=== PATIENT | female | born 1980 | race Caucasian/White ===

== ENCOUNTER 2017-07-28 15:29 | Emergency (ER) | payer MEDICAID ==
[~2017-07-28] VITALS: Ht 175.3 cm; Wt 52.2 kg
[~2017-07-28 15:29] MED LIST: CEFD300C37 PO; CEFU500T50 PO; MULT-500 PO
[2017-07-28] MEDS ORDERED: SODIUM CHLORIDE 0.9% 1,000 ML IV ONE (15:57)
[2017-07-28] MEDS ORDERED: SODIUM CHLORIDE 0.9% 1,000ML IVBOLUS ONE (16:00)
[2017-07-28] MEDS ORDERED: LORazepam 2 MG/ML, 1ML IVPush PRN (16:00)
[2017-07-28] MEDS ORDERED: ONDANSETRON 2MG/ML, 2ML IVPush ONE (16:00)
[2017-07-28] MEDS ORDERED: ONDANSETRON 2MG/ML, 2ML ONE (16:04)
[2017-07-28] MEDS ORDERED: LORazepam 2 MG/ML, 1ML ONE (16:04)
[2017-07-28 16:17] LABS: HEMOGLOBIN 15.4 g/dL (11.7-16.4); WHITE BLOOD COUNT 4.6 x10^3/uL (3.4-10)
[2017-07-28 16:30] LABS: ASPARTATE AMINO TRANSFERASE 326 U/L (15-37); BLOOD UREA NITROGEN 8 mg/dL (7-18)
[2017-07-28] MEDS ORDERED: THIAMINE 100 MG in SODIUM CHLORIDE 0.9% 50 ML IVPB ONE (16:30)
[2017-07-28] MEDS ORDERED: ESCI20TA10 PO (16:52)
[2017-07-28] MEDS ORDERED: NALT50TA PO (16:52)
[2017-07-28 17:47] VITALS: BP 133/97
== END 2017-07-28 17:49 | disposition home or self-care (01) ==
LOC: ED 17:20
DX: K85.20 Alcohol induced acute pancreatitis without necrosis or infection (principal); F10.239 Alcohol dependence with withdrawal, unspecified
CPT/HCPCS: 36415; 80053; 80307; 83690; 84703; 85025; 96361; 96365; 96375; 99284; J2060; J2405; J3411; J7030; G0479

== ENCOUNTER 2017-08-11 08:10 | Inpatient (IN) | payer MEDICAID ==
[~2017-08-11] VITALS: Ht 177.8 cm; Wt 54.3 kg
[~2017-08-11 08:10] MED LIST changes: +ESCI20TA10 PO; +NALT50TA PO
[2017-08-11] MEDS ORDERED: SODIUM CHLORIDE 0.9% 1,000 ML IV ONE (08:29)
[2017-08-11] MEDS ORDERED: SODIUM CHLORIDE 0.9% 1,000ML IVBOLUS ONE (08:30)
[2017-08-11] MEDS ORDERED: THIAMINE 100 MG in SODIUM CHLORIDE 0.9% 50 ML IVPB ONE (08:30)
[2017-08-11] MEDS ORDERED: ONDANSETRON 2MG/ML, 2ML IVPush ONE (08:30)
[2017-08-11] MEDS ORDERED: ONDANSETRON 2MG/ML, 2ML ONE (08:40)
[2017-08-11] MEDS ORDERED: LORazepam 2 MG/ML, 1ML ONE ×2 (08:41→09:22)
[2017-08-11] MEDS: LORazepam 2 MG/ML, 1ML IVPush PRN ×4 (09:01→20:36)
[2017-08-11 09:03] LABS: ASPARTATE AMINO TRANSFERASE 318 U/L (15-37); BLOOD UREA NITROGEN 6 mg/dL (7-18)
[2017-08-11 09:13] LABS: HEMATOCRIT 44.4 % (34.6-47.8); HEMOGLOBIN 15.6 g/dL (11.7-16.4); WHITE BLOOD COUNT 4.5 x10^3/uL (3.4-10)
[2017-08-11 10:35] VITALS: BP 114/82
[2017-08-11] MEDS ORDERED: POTASSIUM CHLORIDE 20 MEQ in LACTATED RINGERS 1,000 ML IV SCH (10:38)
[2017-08-11] MEDS ORDERED: BISACODYL 10 MG SUPP PR PRN (11:00)
[2017-08-11] MEDS ORDERED: POLYETHYLENE GLYCOL 17 GM PACKET PO PRN (11:00)
[2017-08-11] MEDS ORDERED: morphine SULFATE 10 MG/ML, 1ML IVPush PRN (11:00)
[2017-08-11] MEDS ORDERED: LABETALOL 5MG/ML, 20ML IVPush PRN (11:00)
[2017-08-11] MEDS ORDERED: DOCUSATE 100 MG CAPSULE PO PRN (11:00)
[2017-08-11] MEDS ORDERED: OMNIPAQUE 350 MG/ML, 100ML BOTTLE ONE (12:39)
[2017-08-11 13:24] VITALS: BP 119/87
[2017-08-11] MEDS: ENOXAPARIN 40 MG/0.4 ML SQ SCH (13:42)
[2017-08-11] MEDS: POTASSIUM CHLORIDE 20 MEQ, MAGNESIUM SULFATE 2 GM, THIAMINE 100 MG, MVI ADULT 10 ML in ... IV SCH ×2 (14:25→16:05)
[2017-08-11 15:24] VITALS: BP 119/84
[2017-08-11] MEDS: METRONIDAZOLE PMX 500MG/100ML 100 ML IV SCH (18:26)
[2017-08-11 20:19] VITALS: BP 115/80
[2017-08-11] MEDS: ONDANSETRON 2MG/ML, 2ML IVPush PRN (23:34)
[2017-08-12] MEDS: LORazepam 2 MG/ML, 1ML IVPush PRN ×6 (00:22→22:36)
[2017-08-12] MEDS: POTASSIUM CHLORIDE 20 MEQ in LACTATED RINGERS 1,000 ML IV SCH ×3 (00:33→06:40)
[2017-08-12 01:58] VITALS: BP 119/85
[2017-08-12] MEDS: METRONIDAZOLE PMX 500MG/100ML 100 ML IV SCH ×3 (02:08→18:40)
[2017-08-12 05:31] LABS: HEMATOCRIT 35.4 % (34.6-47.8); HEMOGLOBIN 12.1 g/dL (11.7-16.4)
[2017-08-12 05:45] LABS: ASPARTATE AMINO TRANSFERASE 179 U/L (15-37); BLOOD UREA NITROGEN 5 mg/dL (7-18)
[2017-08-12 08:33] VITALS: BP 130/93
[2017-08-12] MEDS: ENOXAPARIN 40 MG/0.4 ML SQ SCH (12:23)
[2017-08-12] MEDS: POTASSIUM CHLORIDE 20 MEQ, MAGNESIUM SULFATE 2 GM, THIAMINE 100 MG, MVI ADULT 10 ML in ... IV SCH (12:23)
[2017-08-12] MEDS: CEFTRIAXONE PMX 1GM/50ML 50 ML IV SCH (13:40)
[2017-08-12 16:27] VITALS: BP 128/91
[2017-08-12] MEDS ORDERED: MAGNESIUM SULFATE PMX 2GM/50ML 50 ML IV ONE (18:00)
[2017-08-12 18:45] VITALS: BP 108/73
[2017-08-12] MEDS: ONDANSETRON 2MG/ML, 2ML IVPush PRN (21:32)
[2017-08-13] MEDS: POTASSIUM CHLORIDE 20 MEQ in LACTATED RINGERS 1,000 ML IV SCH ×3 (00:03→05:06)
[2017-08-13 01:59] VITALS: BP 112/77
[2017-08-13] MEDS: METRONIDAZOLE PMX 500MG/100ML 100 ML IV SCH ×3 (02:43→19:46)
[2017-08-13] MEDS: LORazepam 2 MG/ML, 1ML IVPush PRN (03:04)
[2017-08-13 04:50] LABS: HEMATOCRIT 35.3 % (34.6-47.8); HEMOGLOBIN 12.1 g/dL (11.7-16.4); WHITE BLOOD COUNT 3.9 x10^3/uL (3.4-10)
[2017-08-13 05:00] LABS: ASPARTATE AMINO TRANSFERASE 158 U/L (15-37); BLOOD UREA NITROGEN 2 mg/dL (7-18)
[2017-08-13 07:59] VITALS: BP 113/79
[2017-08-13] MEDS ORDERED: POTASSIUM CHLORIDE 20 MEQ TAB.ER.PRT PO ONE (09:00)
[2017-08-13] MEDS ORDERED: ONDANSETRON ODT 4 MG PO PRN (09:00)
[2017-08-13] MEDS: LORazepam INTENSOL 2 MG/ML BC PRN ×4 (09:53→23:12)
[2017-08-13 12:30] VITALS: BP 120/81
[2017-08-13] MEDS: ENOXAPARIN 40 MG/0.4 ML SQ SCH (12:49)
[2017-08-13] MEDS: POTASSIUM CHLORIDE 20 MEQ, MAGNESIUM SULFATE 2 GM, THIAMINE 100 MG, MVI ADULT 10 ML in ... IV SCH (14:24)
[2017-08-13] MEDS: CEFTRIAXONE PMX 1GM/50ML 50 ML IV SCH (14:24)
[2017-08-13] MEDS: MEROPENEM 1 GM in SODIUM CHLORIDE 0.9% 100 ML IV SCH (17:15)
[2017-08-13 18:48] VITALS: BP 127/87
[2017-08-14] MEDS: MEROPENEM 1 GM in SODIUM CHLORIDE 0.9% 100 ML IV SCH ×2 (00:22→08:35)
[2017-08-14 02:11] VITALS: BP 115/78
[2017-08-14] MEDS: METRONIDAZOLE PMX 500MG/100ML 100 ML IV SCH (03:24)
[2017-08-14] MEDS: LORazepam INTENSOL 2 MG/ML BC PRN (03:54)
[2017-08-14 05:18] LABS: HEMATOCRIT 35.7 % (34.6-47.8); HEMOGLOBIN 12.1 g/dL (11.7-16.4); WHITE BLOOD COUNT 4.7 x10^3/uL (3.4-10)
[2017-08-14 05:34] LABS: ASPARTATE AMINO TRANSFERASE 108 U/L (15-37); BLOOD UREA NITROGEN 1 mg/dL (7-18)
[2017-08-14] MEDS ORDERED: ONDA4TAB13 PO (08:24)
[2017-08-14] MEDS ORDERED: LORA-445 PO (08:24)
[2017-08-14] MEDS ORDERED: NITR100C56 PO (08:24)
[2017-08-14] MEDS ORDERED: METR500T PO (08:24)
[2017-08-14 08:43] VITALS: BP 127/83
[2017-08-14 13:01] VITALS: BP 112/77
== END 2017-08-14 13:55 | disposition home or self-care (01) | DRG 371 ==
LOC: ED 09:20 → EDIP 09:30 → 3NE 10:19
PROVIDERS: ADMIT Hospitalist; ATTEND Hospitalist
DX: A04.72 Enterocolitis due to Clostridium difficile, not specified as recurrent (principal); N17.0 Acute kidney failure with tubular necrosis; K85.20 Alcohol induced acute pancreatitis without necrosis or infection; D69.59 Other secondary thrombocytopenia; E86.0 Dehydration; F10.288 Alcohol dependence with other alcohol-induced disorder; F10.239 Alcohol dependence with withdrawal, unspecified; N39.0 Urinary tract infection, site not specified; E87.6 Hypokalemia; I10 Essential (primary) hypertension; F41.9 Anxiety disorder, unspecified; R73.9 Hyperglycemia, unspecified; F32.9 Major depressive disorder, single episode, unspecified; K70.9 Alcoholic liver disease, unspecified; Z79.899 Other long term (current) drug therapy; Z79.1 Long term (current) use of non-steroidal anti-inflammatories (NSAID)
CPT/HCPCS: 36415; 74177; 80053; 80061; 81001; 83690; 83735; 84100; 84703; 85025; 85610; 87077; 87086; 87186; 87324; 87493; 96361; 96365; 96375; J0696; J1650; J2185; J2405; J3411; J3475; J3480; J7042; Q9967; J2060; J7030; J7120

== ENCOUNTER 2017-10-22 21:37 | Inpatient (IN) | payer MEDICAID ==
[~2017-10-22] VITALS: Ht 177.8 cm; Wt 58.5 kg
[~2017-10-22 21:37] MED LIST changes: +LORA-445 PO; +METR500T PO; +NITR100C56 PO; +ONDA4TAB13 PO
[2017-10-22] MEDS ORDERED: SODIUM CHLORIDE FLUSH 10ML SYR IVF ONE (23:00)
[2017-10-22] MEDS ORDERED: LORazepam 2 MG/ML, 1ML IVPush ONE (23:00)
[2017-10-22] MEDS ORDERED: ONDANSETRON 2MG/ML, 2ML IVPush ONE (23:00)
[2017-10-22] MEDS ORDERED: SODIUM CHLORIDE 0.9% 1,000ML IVBOLUS ONE (23:00)
[2017-10-22] MEDS ORDERED: ONDANSETRON 2MG/ML, 2ML ONE (23:09)
[2017-10-22 23:10] LABS: BASOPHILS # (AUTO) 0.02 x10^3/uL (0-0.1); BASOPHILS % (AUTO) 0 % (0-1); EOSINOPHILS # (AUTO) 0.01 x10^3/uL (0-0.4); EOSINOPHILS % (AUTO) 0 % (1-7); LYMPHOCYTES # (AUTO) 0.96 x10^3/uL (1-3.4); LYMPHOCYTES % (AUTO) 15 % (22-44); MD NO; MEAN CORPUSCULAR HEMOGLOBIN 32.2 pg (27.0-34.8); MEAN CORPUSCULAR HGB CONC 34.1 g/dL (32.4-35.8); MEAN CORPUSCULAR VOLUME 94.3 fL (80-100); MEAN PLATELET VOLUME 6.6 fL (7.4-10.4); MONOCYTES # (AUTO) 0.24 x10^3/uL (0.2-0.8); MONOCYTES % (AUTO) 4 % (2-9); NEUTROPHILS # (AUTO) 5.05 x10^3/uL (1.8-6.8); NEUTROPHILS % (AUTO) 81 % (42-75); PLATELET COUNT 104 x10^3/uL (130-400); RED BLOOD COUNT 4.43 x10^6/uL (3.82-5.3); RED CELL DISTRIBUTION WIDTH 17.5 % (9.6-15.2)
[2017-10-22 23:22] LABS: ALANINE AMINOTRANSFERASE 41 U/L (12-78); ALBUMIN 3.2 g/dL (3.4-5.0); ANION GAP 19 mmol/L (5-15); CALCIUM 8.3 mg/dL (8.5-10.1); CHLORIDE 97 mmol/L (98-107); CREATININE 0.89 mg/dL (0.55-1.02)
[2017-10-22] MEDS ORDERED: LORazepam 2 MG/ML, 1ML ONE ×2 (23:24→23:55)
[2017-10-22 23:26] LABS: ALKALINE PHOSPHATASE 120 U/L (45-117); BILIRUBIN,TOTAL 1.4 mg/dL (0.2-1.0); TOTAL PROTEIN 7.7 g/dL (6.4-8.2)
[2017-10-23] MEDS ORDERED: SODIUM CHLORIDE 0.9% 1,000ML IVBOLUS ONE
[2017-10-23] MEDS ORDERED: LORazepam 2 MG/ML, 1ML IVPush ONE
[2017-10-23] MEDS ORDERED: POTASSIUM CHLORIDE 40 MEQ in SODIUM CHLORIDE 0.9% 500 ML IV ONE
[2017-10-23] MEDS ORDERED: POTASSIUM CHLORIDE 20 MEQ TAB.ER.PRT PO ONE (01:00)
[2017-10-23] MEDS ORDERED: SODIUM CHLORIDE 0.9% 1,000 ML IV ONE (01:24)
[2017-10-23] MEDS ORDERED: ONDANSETRON 2MG/ML, 2ML IVPush PRN (01:30)
[2017-10-23] MEDS ORDERED: POTASSIUM CHLORIDE 20 MEQ TAB.ER.PRT ONE (01:40)
[2017-10-23] MEDS ORDERED: LORazepam 2 MG/ML, 1ML IV PRN ×5 (04:00)
[2017-10-23] MEDS ORDERED: ONDANSETRON 2MG/ML, 2ML IV PRN (04:00)
[2017-10-23] MEDS ORDERED: PROMETHAZINE 12.5 MG SUPP PR PRN (04:00)
[2017-10-23] MEDS ORDERED: LORazepam 1MG TABLET PO PRN ×3 (04:00)
[2017-10-23] MEDS ORDERED: morphine SULFATE 10 MG/ML, 1ML IVPush PRN (04:30)
[2017-10-23] MEDS ORDERED: hydrALAzine 20 MG/ML, 1ML IVPush PRN (04:30)
[2017-10-23] MEDS ORDERED: OXYcodone IR 5MG TABLET PO PRN (04:30)
[2017-10-23] MEDS ORDERED: ENALAPRILAT 1.25 MG/ML, 2ML IVPush PRN (04:30)
[2017-10-23] MEDS ORDERED: POLYETHYLENE GLYCOL 17 GM PACKET PO PRN (04:30)
[2017-10-23] MEDS ORDERED: DOCUSATE 100 MG CAPSULE PO PRN (04:30)
[2017-10-23 04:47] LABS: MEAN CORPUSCULAR HEMOGLOBIN 32.3 pg (27.0-34.8); MEAN CORPUSCULAR HGB CONC 33.7 g/dL (32.4-35.8); MEAN CORPUSCULAR VOLUME 95.8 fL (80-100); RED BLOOD COUNT 3.58 x10^6/uL (3.82-5.3); RED CELL DISTRIBUTION WIDTH 17.5 % (9.6-15.2)
[2017-10-23 05:06] LABS: BASOPHILS # (AUTO) 0.01 x10^3/uL (0-0.1); BASOPHILS % (AUTO) 0 % (0-1); EOSINOPHILS # (AUTO) 0.02 x10^3/uL (0-0.4); EOSINOPHILS % (AUTO) 0 % (1-7); LYMPHOCYTES % (AUTO) 31 % (22-44); MD SCAN; MONOCYTES # (AUTO) 0.15 x10^3/uL (0.2-0.8); MONOCYTES % (AUTO) 4 % (2-9); NEUTROPHILS # (AUTO) 2.51 x10^3/uL (1.8-6.8); NEUTROPHILS % (AUTO) 65 % (42-75); PLATELET COUNT 81 x10^3/uL (130-400)
[2017-10-23] MEDS ORDERED: HEPARIN 5,000 UNITS/ML, 1ML ONE (05:06)
[2017-10-23 05:09] LABS: CALCIUM 6.9 mg/dL (8.5-10.1); CHLORIDE 107 mmol/L (98-107)
[2017-10-23 05:36] LABS: ALANINE AMINOTRANSFERASE 33 U/L (12-78); ALBUMIN 2.5 g/dL (3.4-5.0); ALKALINE PHOSPHATASE 92 U/L (45-117); ANION GAP 10 mmol/L (5-15); BILIRUBIN,TOTAL 1.3 mg/dL (0.2-1.0); CHOL/HDL RATIO 1.9; CHOLESTEROL, TOTAL 104 mg/dL (140-239); CREATININE 0.61 mg/dL (0.55-1.02); FREE T4 (FREE THYROXINE) 0.66 ng/dL (0.76-1.46); HDL CHOL % 53 % (28-40); HDL CHOLESTEROL (DIRECT) 55 mg/dL (40-60); LDL CHOLESTEROL,CALCULATED 35 mg/dL (54-169); LDL/HDL RATIO 0.6 (0.5-3.0); TRIGLYCERIDES 72 mg/dL (50-200); VLDL CHOLESTEROL 14 mg/dL (0-25)
[2017-10-23] MEDS: POTASSIUM CHLORIDE 20 MEQ, MAGNESIUM SULFATE 2 GM, THIAMINE 100 MG, MVI ADULT 10 ML, FO... IV SCH (05:37)
[2017-10-23 05:39] LABS: HEMOGLOBIN A1C 4.1 % (4.2-6.3)
[2017-10-23] MEDS: HEPARIN 5,000 UNITS/ML, 1ML SQ SCH ×3 (05:46→20:00)
[2017-10-23] MEDS ORDERED: BACLOFEN 10 MG TABLET PO SCH (09:00)
[2017-10-23 09:24] VITALS: BP 112/79
[2017-10-23 09:50] LABS: MICROSCOPIC NOT IND
[2017-10-23] MEDS: CITALOPRAM 20 MG TABLET PO SCH (09:53)
[2017-10-23] MEDS: FAMOTIDINE 20 MG/2 ML IVPush SCH ×2 (09:53→21:07)
[2017-10-23] MEDS: GABAPENTIN 100 MG CAPSULE PO SCH ×4 (09:53→20:49)
[2017-10-23 09:54] LABS: CULTURE INDICATED? NO
[2017-10-23] MEDS ORDERED: MAGNESIUM SULFATE PMX 2GM/50ML 50 ML IV ONE (11:00)
[2017-10-23] MEDS ORDERED: LORazepam 1MG TABLET ONE ×2 (11:34→17:29)
[2017-10-23] MEDS: LORazepam 0.5MG TABLET PO PRN ×2 (11:38→17:31)
[2017-10-23] MEDS: LORazepam 1MG TABLET PO PRN ×2 (13:20→20:49)
[2017-10-23 13:56] VITALS: BP 99/68
[2017-10-23 20:04] VITALS: BP 108/74
[2017-10-24 02:27] VITALS: BP 102/70
[2017-10-24] MEDS: HEPARIN 5,000 UNITS/ML, 1ML SQ SCH ×3 (02:44→20:14)
[2017-10-24] MEDS ORDERED: LORazepam 1MG TABLET ONE (02:46)
[2017-10-24] MEDS: LORazepam 1MG TABLET PO PRN ×4 (02:50→21:22)
[2017-10-24 05:12] LABS: ALBUMIN 2.6 g/dL (3.4-5.0); ANION GAP 7 mmol/L (5-15); CALCIUM 6.5 mg/dL (8.5-10.1); CHLORIDE 108 mmol/L (98-107)
[2017-10-24] MEDS: GABAPENTIN 100 MG CAPSULE PO SCH ×4 (05:12→20:53)
[2017-10-24] MEDS: POTASSIUM CHLORIDE 20 MEQ, MAGNESIUM SULFATE 2 GM, THIAMINE 100 MG, MVI ADULT 10 ML, FO... IV SCH (05:12)
[2017-10-24 05:16] LABS: ALANINE AMINOTRANSFERASE 32 U/L (12-78); ALKALINE PHOSPHATASE 102 U/L (45-117); BILIRUBIN,TOTAL 1.6 mg/dL (0.2-1.0); TOTAL PROTEIN 6.1 g/dL (6.4-8.2)
[2017-10-24] MEDS: FAMOTIDINE 20 MG/2 ML IVPush SCH ×2 (07:57→20:53)
[2017-10-24] MEDS: CITALOPRAM 20 MG TABLET PO SCH (07:57)
[2017-10-24] MEDS: LORazepam 0.5MG TABLET PO PRN (07:58)
[2017-10-24 08:00] VITALS: BP 114/82
[2017-10-24 13:51] VITALS: BP 103/70
[2017-10-24 18:59] VITALS: BP 119/83
[2017-10-25 01:45] VITALS: BP 116/78
[2017-10-25] MEDS: LORazepam 1MG TABLET PO PRN ×2 (01:54→05:40)
[2017-10-25] MEDS: HEPARIN 5,000 UNITS/ML, 1ML SQ SCH ×2 (04:45→11:13)
[2017-10-25] MEDS: POTASSIUM CHLORIDE 20 MEQ, MAGNESIUM SULFATE 2 GM, THIAMINE 100 MG, MVI ADULT 10 ML, FO... IV SCH (05:31)
[2017-10-25] MEDS: GABAPENTIN 100 MG CAPSULE PO SCH ×3 (05:32→15:48)
[2017-10-25 07:20] VITALS: BP 101/68
[2017-10-25] MEDS: FAMOTIDINE 20 MG/2 ML IVPush SCH (09:20)
[2017-10-25] MEDS: CITALOPRAM 20 MG TABLET PO SCH (09:20)
[2017-10-25] MEDS: LORazepam 0.5MG TABLET PO PRN ×2 (09:20→15:48)
[2017-10-25 13:39] VITALS: BP 91/62
[2017-10-25] MEDS ORDERED: GABA-826 PO (14:08)
[2017-10-25] MEDS ORDERED: MULT1TAB60 PO (14:08)
[2017-10-25] MEDS ORDERED: THIA100T6 PO (14:08)
[2017-10-25] MEDS ORDERED: FOLI-17 PO (14:08)
[2017-10-26] MEDS ORDERED: MULTIVITAMIN 1 TABLET PO SCH (09:00)
[2017-10-26] MEDS ORDERED: THIAMINE 100MG TABLET PO SCH (09:00)
[2017-10-26] MEDS ORDERED: FOLIC ACID 1 MG TABLET PO SCH (09:00)
== END 2017-10-25 17:38 | disposition home or self-care (01) | DRG 896 ==
LOC: ED 23:39 → EDIP 10-23 01:24 → 3NW 10-23 08:33
PROVIDERS: ADMIT Internal Medicine; ATTEND Internal Medicine
DX: F10.239 Alcohol dependence with withdrawal, unspecified (principal); K85.90 Acute pancreatitis without necrosis or infection, unspecified; D69.6 Thrombocytopenia, unspecified; E44.0 Moderate protein-calorie malnutrition; G62.1 Alcoholic polyneuropathy; K86.1 Other chronic pancreatitis; Z68.1 Body mass index [BMI] 19.9 or less, adult; K70.10 Alcoholic hepatitis without ascites; E87.6 Hypokalemia; F32.9 Major depressive disorder, single episode, unspecified; F41.9 Anxiety disorder, unspecified
CPT/HCPCS: 36415; 80053; 80061; 80307; 81003; 82306; 82607; 83036; 83690; 83735; 84439; 84443; 84703; 85025; 93005; 96365; 96366; 96375; 96376; J2405; J3411; J3475; J3480; J7042; J2060; J7030; J7040; S0028

== ENCOUNTER 2017-11-20 22:22 | Inpatient (IN) | payer MEDICAID ==
[~2017-11-20] VITALS: Ht 152.4 cm; Wt 60.0 kg
[~2017-11-20 22:22] MED LIST changes: +FOLI-17 PO; +GABA-826 PO; +MULT1TAB60 PO; +THIA100T6 PO
[2017-11-20] MEDS ORDERED: LORazepam 2 MG/ML, 1ML ONE (22:41)
[2017-11-20] MEDS ORDERED: ONDANSETRON 2MG/ML, 2ML ONE (22:58)
[2017-11-20] MEDS ORDERED: ONDANSETRON 2MG/ML, 2ML IVPush ONE (23:00)
[2017-11-20] MEDS ORDERED: SODIUM CHLORIDE 0.9% 1,000ML IVBOLUS ONE (23:00)
[2017-11-20] MEDS ORDERED: LORazepam 2 MG/ML, 1ML IVPush ONE (23:00)
[2017-11-20] MEDS ORDERED: MAGNESIUM SULFATE 1 GM, THIAMINE 100 MG, FOLIC ACID 1 MG, MVI ADULT 10 ML in SODIUM CHL... IV ONE (23:00)
[2017-11-20 23:11] LABS: MEAN CORPUSCULAR HEMOGLOBIN 32.5 pg (27.0-34.8); MEAN CORPUSCULAR HGB CONC 33.9 g/dL (32.4-35.8); MEAN CORPUSCULAR VOLUME 95.9 fL (80-100); RED BLOOD COUNT 4.62 x10^6/uL (3.82-5.3); RED CELL DISTRIBUTION WIDTH 17.4 % (9.6-15.2)
[2017-11-20 23:13] LABS: ALBUMIN 3.7 g/dL (3.4-5.0); ANION GAP 19 mmol/L (5-15); CALCIUM 8.6 mg/dL (8.5-10.1); CHLORIDE 96 mmol/L (98-107)
[2017-11-20 23:15] LABS: SALICYLATE LEVEL < 2.0 mg/dL (2.8-20.0)
[2017-11-20 23:17] LABS: ALANINE AMINOTRANSFERASE 72 U/L (12-78); ALKALINE PHOSPHATASE 165 U/L (45-117); BILIRUBIN,TOTAL 3.5 mg/dL (0.2-1.0); CREATININE 1.03 mg/dL (0.55-1.02); TOTAL PROTEIN 8.5 g/dL (6.4-8.2)
[2017-11-20 23:21] LABS: ACETAMINOPHEN < 2 mcg/mL (10-30)
[2017-11-20 23:34] LABS: BASOPHILS # (AUTO) 0.02 x10^3/uL (0-0.1); BASOPHILS % (AUTO) 1 % (0-1); EOSINOPHILS % (AUTO) 0 % (1-7); LYMPHOCYTES # (AUTO) 0.53 x10^3/uL (1-3.4); LYMPHOCYTES % (AUTO) 17 % (22-44); MD SCAN; MEAN PLATELET VOLUME 7.1 fL (7.4-10.4); MONOCYTES # (AUTO) 0.48 x10^3/uL (0.2-0.8); MONOCYTES % (AUTO) 15 % (2-9); NEUTROPHILS # (AUTO) 2.09 x10^3/uL (1.8-6.8); NEUTROPHILS % (AUTO) 67 % (42-75); PLATELET COUNT 67 x10^3/uL (130-400)
[2017-11-21] MEDS ORDERED: LORazepam 2 MG/ML, 1ML IVPush ONE
[2017-11-21] MEDS ORDERED: LORazepam 2 MG/ML, 1ML ONE (00:01)
[2017-11-21] MEDS: POTASSIUM CHLORIDE 20 MEQ, MAGNESIUM SULFATE 2 GM, THIAMINE 100 MG, MVI ADULT 10 ML, FO... IV SCH (00:16)
[2017-11-21 00:30] LABS: CULTURE INDICATED? YES; MICROSCOPIC INDICATED
[2017-11-21] MEDS ORDERED: ENOXAPARIN 40 MG/0.4 ML SQ SCH (00:30)
[2017-11-21] MEDS ORDERED: POTASSIUM CHLORIDE 20 MEQ TAB.ER.PRT PO ONE (00:30)
[2017-11-21] MEDS ORDERED: ACETAMINOPHEN 325 MG TABLET PO PRN (00:30)
[2017-11-21 00:39] LABS: AMPHETAMINE SCREEN, URINE Negative (Negative); BARBITURATE SCREEN, URINE Negative (Negative); BENZODIAZEPINE SCREEN, URINE Negative (Negative); CANNABINOID SCREEN, URINE Negative (Negative); COCAINE SCREEN, URINE Negative (Negative); METHADONE SCREEN, URINE Negative (Negative); OPIATE SCREEN, URINE Negative (Negative)
[2017-11-21] MEDS ORDERED: LORazepam 2 MG/ML, 1ML IV PRN ×5 (01:00)
[2017-11-21 01:11] VITALS: BP 106/73
[2017-11-21] MEDS: D5%-0.9% NACL 1,000 ML IV SCH ×3 (02:43→20:07)
[2017-11-21 03:28] VITALS: BP 106/72
[2017-11-21 05:21] LABS: ALBUMIN 2.6 g/dL (3.4-5.0); ANION GAP 7 mmol/L (5-15); CALCIUM 7.5 mg/dL (8.5-10.1); CHLORIDE 100 mmol/L (98-107)
[2017-11-21 05:22] LABS: MEAN CORPUSCULAR HGB CONC 34.5 g/dL (32.4-35.8); MEAN CORPUSCULAR VOLUME 95.6 fL (80-100); RED BLOOD COUNT 3.68 x10^6/uL (3.82-5.3)
[2017-11-21 05:25] LABS: ALANINE AMINOTRANSFERASE 61 U/L (12-78); ALKALINE PHOSPHATASE 123 U/L (45-117); BILIRUBIN,TOTAL 2.4 mg/dL (0.2-1.0); CREATININE 0.59 mg/dL (0.55-1.02); TOTAL PROTEIN 6.1 g/dL (6.4-8.2)
[2017-11-21 06:23] LABS: MEAN PLATELET VOLUME 7.2 fL (7.4-10.4)
[2017-11-21 06:25] LABS: PLATELET COUNT 39 x10^3/uL (130-400)
[2017-11-21 06:28] LABS: BASOPHILS # (AUTO) 0.02 x10^3/uL (0-0.1); BASOPHILS % (AUTO) 1 % (0-1); EOSINOPHILS # (AUTO) 0.01 x10^3/uL (0-0.4); EOSINOPHILS % (AUTO) 0 % (1-7); LYMPHOCYTES % (AUTO) 34 % (22-44); MD SCAN; MONOCYTES # (AUTO) 0.47 x10^3/uL (0.2-0.8); MONOCYTES % (AUTO) 15 % (2-9); NEUTROPHILS # (AUTO) 1.66 x10^3/uL (1.8-6.8); NEUTROPHILS % (AUTO) 51 % (42-75)
[2017-11-21 07:23] VITALS: BP 116/81
[2017-11-21] MEDS: CITALOPRAM 20 MG TABLET PO SCH (09:00)
[2017-11-21] MEDS: GABAPENTIN 300 MG CAPSULE PO SCH ×3 (09:00→20:08)
[2017-11-21] MEDS ORDERED: LORazepam 1MG TABLET ONE (13:05)
[2017-11-21] MEDS: LORazepam 1MG TABLET PO PRN ×3 (13:24→21:15)
[2017-11-21] MEDS ORDERED: LORazepam 1MG TABLET PO PRN (13:30)
[2017-11-21 14:06] VITALS: BP 112/74
[2017-11-21] MEDS ORDERED: DEXTROSE 4 GM TAB.CHEW PO PRN (15:30)
[2017-11-21] MEDS ORDERED: DEXTROSE 50%, 50ML SYRINGE IVPush PRN (15:30)
[2017-11-21] MEDS ORDERED: GLUCAGON 1 MG IM PRN (15:30)
[2017-11-21] MEDS: SODIUM CHLORIDE FLUSH 10ML SYR IVF SCH (20:07)
[2017-11-21 20:48] VITALS: BP 110/77
[2017-11-22 00:06] VITALS: BP 110/78
[2017-11-22] MEDS: POTASSIUM CHLORIDE 20 MEQ, MAGNESIUM SULFATE 2 GM, THIAMINE 100 MG, MVI ADULT 10 ML, FO... IV SCH (00:38)
[2017-11-22] MEDS: LORazepam 1MG TABLET PO PRN ×4 (01:46→21:39)
[2017-11-22] MEDS: ONDANSETRON 2MG/ML, 2ML IVPush PRN ×2 (03:10→09:59)
[2017-11-22 05:22] LABS: INTERNATIONAL NORMALIZED RATIO 1.08 (0.93-1.1); PROTHROMBIN TIME 11.1 Seconds (9.6-11.5)
[2017-11-22 05:25] LABS: CHLORIDE 102 mmol/L (98-107)
[2017-11-22 05:33] LABS: MEAN CORPUSCULAR HEMOGLOBIN 33.2 pg (27.0-34.8); MEAN CORPUSCULAR HGB CONC 34.3 g/dL (32.4-35.8); MEAN CORPUSCULAR VOLUME 96.8 fL (80-100); MEAN PLATELET VOLUME 8.4 fL (7.4-10.4); RED BLOOD COUNT 3.83 x10^6/uL (3.82-5.3); RED CELL DISTRIBUTION WIDTH 17.2 % (9.6-15.2)
[2017-11-22 05:36] LABS: ALANINE AMINOTRANSFERASE 74 U/L (12-78); ALBUMIN 2.6 g/dL (3.4-5.0); ALKALINE PHOSPHATASE 135 U/L (45-117); ANION GAP 8 mmol/L (5-15); BILIRUBIN,TOTAL 3.7 mg/dL (0.2-1.0); CALCIUM 7.2 mg/dL (8.5-10.1); CREATININE 0.52 mg/dL (0.55-1.02); TOTAL PROTEIN 6.3 g/dL (6.4-8.2)
[2017-11-22 05:39] LABS: PLATELET COUNT 47 x10^3/uL (130-400)
[2017-11-22 06:26] LABS: BASOPHILS # (AUTO) 0.02 x10^3/uL (0-0.1); BASOPHILS % (AUTO) 1 % (0-1); EOSINOPHILS # (AUTO) 0.04 x10^3/uL (0-0.4); EOSINOPHILS % (AUTO) 1 % (1-7); LYMPHOCYTES % (AUTO) 41 % (22-44); MD SCAN; MONOCYTES # (AUTO) 0.29 x10^3/uL (0.2-0.8); MONOCYTES % (AUTO) 9 % (2-9); NEUTROPHILS # (AUTO) 1.52 x10^3/uL (1.8-6.8); NEUTROPHILS % (AUTO) 48 % (42-75)
[2017-11-22 07:27] VITALS: BP 125/88
[2017-11-22] MEDS: LORazepam 0.5MG TABLET PO PRN ×2 (09:37→14:42)
[2017-11-22] MEDS: D5%-0.9% NACL 1,000 ML IV SCH ×2 (09:37→19:32)
[2017-11-22] MEDS: GABAPENTIN 300 MG CAPSULE PO SCH ×3 (09:37→21:38)
[2017-11-22] MEDS: CITALOPRAM 20 MG TABLET PO SCH (09:37)
[2017-11-22] MEDS: SODIUM CHLORIDE FLUSH 10ML SYR IVF SCH ×2 (09:38→21:39)
[2017-11-22 16:22] VITALS: BP 113/79
[2017-11-22 21:35] VITALS: BP 111/76
[2017-11-23 02:26] VITALS: BP 121/86
[2017-11-23 07:00] VITALS: BP 131/92
[2017-11-23] MEDS: SODIUM CHLORIDE FLUSH 10ML SYR IVF SCH ×2 (08:08→21:00)
[2017-11-23] MEDS: MULTIVITAMIN 1 TABLET PO SCH (08:09)
[2017-11-23] MEDS: GABAPENTIN 300 MG CAPSULE PO SCH ×3 (08:10→21:00)
[2017-11-23] MEDS: FOLIC ACID 1 MG TABLET PO SCH (08:10)
[2017-11-23] MEDS: CITALOPRAM 20 MG TABLET PO SCH (08:10)
[2017-11-23] MEDS: CYANOCOBALOMIN 100MCG TABLET PO SCH (08:11)
[2017-11-23] MEDS: D5%-0.9% NACL 1,000 ML IV SCH ×2 (08:11→18:33)
[2017-11-23] MEDS: LORazepam 1MG TABLET PO PRN ×3 (08:33→20:59)
[2017-11-23 09:26] LABS: ALANINE AMINOTRANSFERASE 63 U/L (12-78); ALBUMIN 2.6 g/dL (3.4-5.0); ANION GAP 9 mmol/L (5-15); CALCIUM 7.6 mg/dL (8.5-10.1); CHLORIDE 100 mmol/L (98-107); CREATININE 0.56 mg/dL (0.55-1.02)
[2017-11-23 09:28] LABS: ALKALINE PHOSPHATASE 156 U/L (45-117); BILIRUBIN,TOTAL 2.4 mg/dL (0.2-1.0); TOTAL PROTEIN 6.5 g/dL (6.4-8.2)
[2017-11-23 09:39] LABS: MEAN CORPUSCULAR HEMOGLOBIN 33.1 pg (27.0-34.8); MEAN CORPUSCULAR HGB CONC 33.9 g/dL (32.4-35.8); MEAN CORPUSCULAR VOLUME 97.5 fL (80-100); MEAN PLATELET VOLUME 8.4 fL (7.4-10.4); PLATELET COUNT 67 x10^3/uL (130-400); RED BLOOD COUNT 3.72 x10^6/uL (3.82-5.3); RED CELL DISTRIBUTION WIDTH 17.2 % (9.6-15.2)
[2017-11-23 10:05] LABS: BASOPHILS # (AUTO) 0.03 x10^3/uL (0-0.1); BASOPHILS % (AUTO) 1 % (0-1); EOSINOPHILS # (AUTO) 0.07 x10^3/uL (0-0.4); EOSINOPHILS % (AUTO) 2 % (1-7); LYMPHOCYTES # (AUTO) 1.13 x10^3/uL (1-3.4); LYMPHOCYTES % (AUTO) 35 % (22-44); MD SCAN; MONOCYTES % (AUTO) 13 % (2-9); NEUTROPHILS % (AUTO) 50 % (42-75)
[2017-11-23 13:22] VITALS: BP 103/70
[2017-11-23] MEDS ORDERED: POTASSIUM CHLORIDE 20 MEQ TAB.ER.PRT PO ONE (13:30)
[2017-11-23 20:00] VITALS: BP 119/80
[2017-11-24] MEDS: LORazepam 1MG TABLET PO PRN ×2 (00:33→08:21)
[2017-11-24 01:44] VITALS: BP 126/85
[2017-11-24 05:42] LABS: CHLORIDE 103 mmol/L (98-107)
[2017-11-24 05:52] LABS: ALANINE AMINOTRANSFERASE 62 U/L (12-78); ALBUMIN 2.5 g/dL (3.4-5.0); ALKALINE PHOSPHATASE 148 U/L (45-117); ANION GAP 9 mmol/L (5-15); BILIRUBIN,TOTAL 2.1 mg/dL (0.2-1.0); CALCIUM 8.1 mg/dL (8.5-10.1); CREATININE 0.41 mg/dL (0.55-1.02); TOTAL PROTEIN 6.3 g/dL (6.4-8.2)
[2017-11-24 06:24] VITALS: BP 120/84
[2017-11-24 06:45] LABS: BASOPHILS # (AUTO) 0.04 x10^3/uL (0-0.1); BASOPHILS % (AUTO) 1 % (0-1); EOSINOPHILS # (AUTO) 0.07 x10^3/uL (0-0.4); EOSINOPHILS % (AUTO) 2 % (1-7); LYMPHOCYTES # (AUTO) 1.62 x10^3/uL (1-3.4); LYMPHOCYTES % (AUTO) 41 % (22-44); MD SCAN; MEAN CORPUSCULAR HEMOGLOBIN 33.5 pg (27.0-34.8); MEAN CORPUSCULAR HGB CONC 34.3 g/dL (32.4-35.8); MEAN CORPUSCULAR VOLUME 97.8 fL (80-100); MEAN PLATELET VOLUME 8.8 fL (7.4-10.4); MONOCYTES % (AUTO) 15 % (2-9); NEUTROPHILS % (AUTO) 41 % (42-75); PLATELET COUNT 102 x10^3/uL (130-400); RED BLOOD COUNT 3.96 x10^6/uL (3.82-5.3)
[2017-11-24] MEDS: GABAPENTIN 300 MG CAPSULE PO SCH (08:06)
[2017-11-24] MEDS: CYANOCOBALOMIN 100MCG TABLET PO SCH (08:06)
[2017-11-24] MEDS: FOLIC ACID 1 MG TABLET PO SCH (08:06)
[2017-11-24] MEDS: CITALOPRAM 20 MG TABLET PO SCH (08:07)
[2017-11-24] MEDS: MULTIVITAMIN 1 TABLET PO SCH (08:07)
[2017-11-24] MEDS: SODIUM CHLORIDE FLUSH 10ML SYR IVF SCH (09:00)
[2017-11-24] MEDS ORDERED: LORA-446 PO (10:51)
[2017-11-24] MEDS ORDERED: GABA-826 PO (10:51)
== END 2017-11-24 12:23 | disposition home or self-care (01) | DRG 896 ==
LOC: ED 23:13 → EDIP 23:52 → 4EST 11-21 01:22
PROVIDERS: ADMIT Hospitalist; ATTEND Hospitalist
DX: F10.231 Alcohol dependence with withdrawal delirium (principal); E43 Unspecified severe protein-calorie malnutrition; N17.0 Acute kidney failure with tubular necrosis; K85.20 Alcohol induced acute pancreatitis without necrosis or infection; D69.59 Other secondary thrombocytopenia; F22 Delusional disorders; K70.10 Alcoholic hepatitis without ascites; E86.0 Dehydration; G62.9 Polyneuropathy, unspecified; K76.0 Fatty (change of) liver, not elsewhere classified; D72.819 Decreased white blood cell count, unspecified; E16.2 Hypoglycemia, unspecified; F32.9 Major depressive disorder, single episode, unspecified; Z68.25 Body mass index [BMI] 25.0-25.9, adult
CPT/HCPCS: 36415; 80053; 80307; 80329; 81001; 83690; 83735; 84100; 84703; 85025; 85610; 87086; 96361; 96365; 96375; 96376; J1650; J2405; J3411; J3475; J3480; J7042; G0480; J2060; J7030

== ENCOUNTER 2020-11-16 20:54 | Emergency (ER) | payer MEDICAID ==
[~2020-11-16] VITALS: Ht 177.8 cm; Wt 54.1 kg
[~2020-11-16 20:54] MED LIST changes: -FOLI-17 PO; +FOLI1TAB32 PO; +LORA-446 PO; +MULT-449 PO; -MULT1TAB60 PO; -THIA100T6 PO; +THIA100T67 PO
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
[2020-11-16] MEDS ORDERED: TRAZODONE HCL PO (21:24)
[2020-11-16] MEDS ORDERED: PROPRANOLOL HCL PO (21:24)
[2020-11-16] MEDS ORDERED: WELLBUTRIN PO (21:24)
[2020-11-16 21:43] LABS: MEAN CORPUSCULAR HEMOGLOBIN 30.5 pg (27.0-34.8); MEAN CORPUSCULAR HGB CONC 33.7 g/dL (32.4-35.8); MEAN PLATELET VOLUME 6.9 fL (7.4-10.4); PLATELET COUNT 130 x10^3/uL (130-400); RED BLOOD COUNT 5.12 x10^6/uL (3.82-5.3); RED CELL DISTRIBUTION WIDTH 16.8 % (9.6-15.2)
[2020-11-16 21:53] LABS: ALBUMIN 3.7 g/dL (3.4-5.0); ANION GAP 12 mmol/L (5-15); CALCIUM 8.5 mg/dL (8.5-10.1); CHLORIDE 107 mmol/L (98-107); CREATININE 0.69 mg/dL (0.55-1.02)
--- NOTE | 2020-11-16 21:55 | NUR ---
PT RESTING ON GURNEY IN ROOM, EYES CLOSED, EVEN AND UNLABORED RESPIRATIONS, NAD, SITTER IN LINE OF SIGHT, ROOM SECURED, WCTM.
[2020-11-16 21:58] LABS: SALICYLATE LEVEL < 1.7 mg/dL (2.8-20.0)
[2020-11-16 22:15] LABS: MD YES
[2020-11-16 22:18] LABS: BASOS#(MANUAL) 0.04 x10^3/uL (0-0.1); BASOS% (MANUAL) 1 % (0-1); EOS#(MANUAL) 0.04 x10^3/uL (0.0-0.4); EOS% (MANUAL) 1 % (1-7); LYMPH#(MANUAL) 2.05 x10^3/uL (1-3.4); LYMPHS% (MANUAL) 50 % (22-44); MONOS#(MANUAL) 0.33 x10^3/uL (0.3-2.7); MONOS% (MANUAL) 8 % (2-9); SEG#(MANUAL) 1.64 x10^3/uL (1.8-6.8); SEGS% (MANUAL) 40 % (42-75)
[2020-11-16 22:19] LABS: <PLATELET ESTIMATE> DECREASED; ANISOCYTOSIS 1+; SMALL PLATELETS 1+
--- NOTE | 2020-11-16 22:50 | NUR ---
late entry d/t pt care: pt nad, resting on gurney, ambulated to a from restroom with standby assist from this rn, pt unable to urinate. sitter in line of sight, room secured. analy.
--- NOTE | 2020-11-16 23:52 | NUR ---
pt resting on laxmi lopez, states she does not have to urinate at this time. room secured, sitter in line of sight, analy. pt breathlyzer at .423 at this time
--- NOTE | 2020-11-17 00:56 | NUR ---
PT RESTING ON GURHEATHER, NAD, SITTER IN LINE OF SIGHT, ROOM SECURED, PT REQUESTING TO GO HOME, DISCUSSED HOLD WITH PT AND THAT SABAS POWELL WAS WILLING TO DC IF MOTHER PICKED HER UP, PT DECLINED CALLING MOTHER STATING I JUST NEED TO GO TO MY HOTEL, PT INFORMED THAT IT WOULD NOT BE AN OPTION AT THIS TIME. PROVIDED WATER FOR COMFORT, NAD, DENIES ADDITONAL NEEDS AT THIS TIME. DENIES ANY SI/HI. WCTM.
--- NOTE | 2020-11-17 02:04 | NUR ---
Alesha carpenter in ED - 11/17/20 at 0205 by [email or web address] Covering primary nurse for break. Waiting for ERP evaluation.
--- NOTE | 2020-11-17 02:05 | NUR ---
Covering primary nurse for break. Pt calm, resting, sitter in line of site.
--- NOTE | 2020-11-17 02:39 | NUR ---
Pretty KHAN at , [facility], no change in condition, room secure, sitter in line of sight, [facility].
--- NOTE | 2020-11-17 03:07 | NUR ---
pt moved to hospital bed for comfort, ambulated to and from restroom with a smooth and steady gait, ua obtained and walked to lab, pt back to bed, lights dimmed for comfort, room secured, rails engaged, provided sprite for comfort, nad, sitter in line of sight, wctm.
[2020-11-17 03:33] LABS: AMPHETAMINE SCREEN, URINE Negative (Negative); BARBITURATE SCREEN, URINE Positive (Negative); BENZODIAZEPINE SCREEN, URINE Positive (Negative); CANNABINOID SCREEN, URINE Negative (Negative); COCAINE SCREEN, URINE Negative (Negative); METHADONE SCREEN, URINE Negative (Negative); OPIATE SCREEN, URINE Negative (Negative)
--- NOTE | 2020-11-17 05:22 | NUR ---
pt resting on right side laying position on hospital bed, eyes closed, even and unlabored respirations, nad, appears comfortable, bed in lowest, rails engaged, room secured, pt to be dc'd, wctm.
--- NOTE | 2020-11-17 06:29 | NUR ---
RN AT TO DISCUSS DC WITH PT, PT ON BOARD WITH PLAN AND CALLING MOTHER TO ASSIST IN GATHERING THINGS FROM HOTEL. AFTER SPEAKING TO MOTHER PT STATES "I THINK I NEED TO STAY A FEW MORE HOURS BECAUSE I NEED HELP". PT INFORMED THAT WE DO NOT DO DETOX TREATMENT HERE AND THAT IS PERFORMED AT OTHER OUT/IN PATIENT FACILITIES, LISTED ON PAPERWORK FOR TREATMENT AND WE ARE ABLE TO SEND HER THERE IF PREFERRED. AFTER PT STATES SHE WANTS TO STAY PT STATES "WELL NOW I DONT THINK I CAN WALK AND IM WITHDRAWING" AT THAT TIME PT LEFT ARM BEGAN VIOLENTLY TREMORING, NO TREMORS ON RIGHT SIDE, DENIES VISUAL OR AUDITORY HALLUCINATIONS, NO DIAPHORESIS, NAD, BED IN LOWEST, RAILS ENGAGED, ERP AWARE, WCTM.
[2020-11-17] MEDS ORDERED: CHLORDIAZEPOXIDE 25 MG CAPSULE ONE (06:38)
--- NOTE | 2020-11-17 06:46 | NUR ---
REPORT TO JUSTIN MARIANOSPORT INTERN OF CARE AT THIS TIME
[2020-11-17 06:49] VITALS: BP 124/87
--- NOTE | 2020-11-17 06:50 | NUR ---
PT PROVIDED DC INSTRUCTIONS, MEDICATED PER VERBAL ORDER, NAD, PROVIDED BELONGINGS TO BEGIN GETTING DRESSED, PROVIDED VOUCHER FOR TAXI, VERBALIZED UNDERSTANDING OF DC INSTRUCTIONS, DENIES ADDITIONAL NEEDS.
[2020-11-17] MEDS ORDERED: CHLORDIAZEPOXIDE 25 MG CAPSULE PO PRN (07:00)
--- NOTE | 2020-11-17 07:15 | NUR ---
PT DIRECTED TO DC AREA, AMBULATED, STEADY GAIT.
== END 2020-11-17 07:20 | disposition home or self-care (01) ==
LOC: ED 11-17 02:50
DX: F10.220 Alcohol dependence with intoxication, uncomplicated (principal); R41.82 Altered mental status, unspecified; Y90.9 Presence of alcohol in blood, level not specified
CPT/HCPCS: 36415; 80048; 80299; 80307; 80320; 80329; 82040; 84703; 85025; 99283; G0480